=== PATIENT | female | born 1935 | race Caucasian/White ===

== ENCOUNTER → 2018-01-05 | Outpatient (CLI) | payer BC | END | disposition home or self-care (01) | LOC: US 11:33 | DX: J44.9 Chronic obstructive pulmonary disease, unspecified (principal); R22.42 Localized swelling, mass and lump, left lower limb; I87.2 Venous insufficiency (chronic) (peripheral) | CPT/HCPCS: 71046; 93971 ==

== ENCOUNTER → 2019-01-17 | Outpatient (CLI) | payer BC ==
[~2019-01-17] MED LIST: DENO60DI SQ; NAPR-677 PO
--- NOTE | 2019-01-17 10:51 | CARD ---
MR#: [id number] Date of Study: 01/17/2019 Ordering Physician: POLO THOMAS, Referring Physician: POLO THOMAS, Tech: Maria A Vásquez APPROVED REPORT EXAM: Two-dimensional and M-mode echocardiogram with Doppler and color Doppler. Other Information Quality : GoodHR: 73bpm INDICATION Dyspnea 2D DIMENSIONS RVDd2.7 (2.9-3.5cm)IVSd0.9 (0.7-1.1cm) Aortic Root(2D)2.7 (2.0-3.7cm)LVDd4.2 (3.9-5.9cm) LVOT Diameter2.3 (1.8-2.4cm)PWd1.0 (0.7-1.1cm) LVDs3.2 (2.5-4.0cm)FS (%) 22.7 % SV35.8 mlLVEF(%)46.0 (>50%) Aortic Valve AoV Peak Kelvin.122.8cm/sAoV VTI26.9cm AO Peak GR.6.0mmHgLVOT Peak Kelvin.106.2cm/s LVOT VTI 26.36cmAO Mean GR.3mmHg DELMA (VMAX)2.04mb5BEF (VTI)4.13cm2 Mitral Valve MV E Wxlvsbrx75.4cm/sMV DECEL [id number] MV A Ynnmkypp431.4cm/sMV JIQ18xy E/A Ratio0.8MVA (PHT)3.19cm2 TDI E/Lateral E'16.3E/Medial E'17.0 Pulmonary Valve PV Peak Gcqrqunq12.1cm/sPV Peak Grad.3mmHg Tricuspid Valve TR P. Ptfayzmu083rq/sRAP EZSYYDEQ3peKj TR Peak Gr.35mmHg Pulmonary Vein S1 Daycsweb10.8cm/sD2 Umeaevzj21.3cm/s PVa jpxwsopt18yoat LEFT VENTRICLE The left ventricle is normal size. There is borderline concentric left ventricular hypertrophy. The l eft ventricular systolic function is normal and the ejection fraction is within normal range. EF 55% There is normal LV segmental wall motion. Transmitral Doppler flow pattern is Grade I-abnormal relaxa tion pattern. RIGHT VENTRICLE The right ventricle is normal size. There is normal right ventricular wall thickness. The right ventr icular systolic function is normal. ATRIA The left atrium size is normal. The right atrium size is normal. Interatrial septal thickening is not ed. AORTIC VALVE The aortic valve is thickened but opens well. Doppler and Color Flow revealed no significant aortic r egurgitation. There is no significant aortic valvular stenosis. MITRAL VALVE The mitral valve is normal in structure and function. There is no evidence of mitral valve prolapse. There is no mitral valve stenosis. Doppler and Color-flow revealed trace mitral regurgitation. TRICUSPID VALVE The tricuspid valve is normal in structure and function. Doppler and Color Flow revealed trace tricus pid regurgitation with an estimated PAP of 40 mmHg. There is no tricuspid valve prolapse or vegetatio n. There is no tricuspid valve stenosis. PULMONIC VALVE The pulmonic valve is not well visualized. Doppler and Color Flow revealed no pulmonic valvular regur gitation. There is no pulmonic valvular stenosis. GREAT VESSELS The aortic root is normal in size. The IVC is normal in size and collapses >50% with inspiration. PERICARDIAL EFFUSION There is no evidence of significant pericardial effusion. Critical Notification Critical Value: No <Conclusion> The left ventricular systolic function is normal and the ejection fraction is within normal range. EF 55% There is normal LV segmental wall motion. Doppler and Color Flow revealed trace tricuspid regurgitation with an estimated PAP of 40 mmHg. Mild diastolic dysfunction. No definitive cardiac source of dyspnea. Signed by : Tiago Reyes, Electronically Approved : 01/17/2019 10:50:42
== END | disposition home or self-care (01) ==
LOC: ECHO 08:30
PROVIDERS: ATTEND Family Medicine
DX: I51.7 Cardiomegaly (principal)
CPT/HCPCS: 93306

== ENCOUNTER → 2019-02-07 | Outpatient (CLI) | payer BC ==
--- NOTE | 2019-02-07 13:25 | RAD ---
Renal sonography Clinical indications: Renal insufficiency. FINDINGS: The longitudinal and AP and transverse dimensions of the right kidney are 8.4 cm and 3.5 cm and 4.4 cm respectively. The longitudinal and AP and transverse dimensions of the left kidney are 9.3 cm and 4.6 cm and 4.0 cm respectively. There is a small cyst of the left kidney measuring 1.3 cm. No hydronephrosis or perinephric fluid collection is seen on either side. Urinary bladder is mildly distended. IMPRESSION: No hydronephrosis. Left renal cyst. Electronically signed by: Rolo Portillo MD (02/07/2019 1:22 PM) [facility]
== END | disposition home or self-care (01) ==
LOC: US 11:35
PROVIDERS: ATTEND Family Medicine
DX: N28.1 Cyst of kidney, acquired (principal); N32.89 Other specified disorders of bladder
CPT/HCPCS: 76770

== ENCOUNTER → 2019-03-13 | Outpatient (CLI) | payer BC ==
--- NOTE | 2019-03-13 11:19 | RAD ---
MR#: [id number] Date of Study: 03/13/2019 Ordering Physician: NICK FUNES, Referring Physician: NICK FUNES, Tech: Maria A Kitchen RDMS, RVT, RTR APPROVED REPORT Bilateral Lower Extremity Venous Study for Venous Competence, DVT Patient Location: OUT-PATIENT Indications Lower Extremity Edema: Bilateral Findings Grayscale images of the bilateral lower extremity deep veins were obtained and grossly there is no ev idence of thrombus in the deep veins. Spectral waveforms and color Doppler are within normal limits with spontaneous flow below the knees. Critical Notification Critical Value: No <Conclusion> No significant lower extremity DVT. Signed by : Nick Funes, Electronically Approved : 03/13/2019 11:18:19
--- NOTE | 2019-03-13 11:20 | RAD ---
MR#: [id number] Date of Study: 03/13/2019 Ordering Physician: NICK FUNES, Referring Physician: NICK FUNES, Tech: Maria A Kitchen RDMS, RVT, RTR APPROVED REPORT Patient Location : OUT-PATIENT Indications Lower Extremity Edema : Bilateral Deep System Deep Venous Thrombosis present : No Deep Venous Reflux present : Bilateral Greater Saphenous Veins (GSV) Significant venous relux noted in the LEFT GSV at the following levels : Superficial Femoral Junction , Proximal Thigh, Mid Thigh, Distal Thigh, Proximal Calf, Mid Calf, Distal Calf Findings No significant reflux noted in the right greater and lesser saphenous veins. The right great saphenou s vein measures 5.1 mm. The left great saphenous vein measures 5.3 mm and has a maximum reflux time of 2.4 seconds. The left lesser saphenous veins does not show any evidence of reflux. Bilateral anterior accessory saphenous v eins do not show any evidence of reflux. Critical Notification Critical Value: No <Conclusion> 1. Positive for reflux in the left greater saphenous vein. Signed by : Nick Funes, Electronically Approved : 03/13/2019 11:19:44
== END | disposition home or self-care (01) ==
LOC: US 08:55
PROVIDERS: ATTEND Internal Medicine Cardiovascular Disease
DX: I87.2 Venous insufficiency (chronic) (peripheral) (principal)
CPT/HCPCS: 93970